=== PATIENT | male | born 1985 | race Caucasian/White ===

== ENCOUNTER 2019-11-30 13:03 | Emergency (ER) | payer OTHER ==
--- NOTE | 2019-11-30 15:03 | ED Physician Documentation ---
PD HPI SKIN - Stated complaint Stated Complaint: RASH - Chief complaint Chief Complaint: General - History obtained from History obtained from: Patient - History of Present Illness Timing - onset: How many days ago (few) Timing - duration: Days (few) Timing - details: Gradual onset, Still present, Waxing and waning Location: Bodywide Quality / character: Itchy, Raised. No: Vesicular Associated symptoms: No: Fever, Myalgias, Facial swelling, Dyspnea, N/V/D Contributing factors: Unknown (he is recently moved to [facility] and is in hotel currently, but using his own soap and shampoo.). No: Exposed to medication, Exposed to food Similar symptoms before: Has not had sx before Review of Systems Constitutional: denies: Fever Nose: denies: Rhinorrhea / runny nose, Congestion Throat: denies: Sore throat Respiratory: denies: Cough GI: denies: Abdominal Pain, Nausea, Vomiting, Diarrhea Skin: reports: Rash (hives intermittently difusely) PD PAST MEDICAL HISTORY - Past Medical History Past Medical History: No - Present Medications Home Medications: Ambulatory Orders Medication Instructions Recorded Confirmed Cetirizine [ZyrTEC] 10 mg PO BID #14 tablet 11/30/19 Famotidine 20 mg PO BID #14 tablet 11/30/19 dexAMETHasone [Decadron] 4 mg PO DAILY #7 tablet 11/30/19 - Allergies Allergies/Adverse Reactions: Allergies Allergy/AdvReac Type Severity Reaction Status Date / Time No Known Drug Allergies Allergy Verified 11/30/19 13:32 PD ED PE NORMAL - Vitals Vital signs reviewed: Yes - General General: Alert and oriented X 3, No acute distress, Well developed/nourished - HEENT HEENT: Moist mucous membranes, Pharynx benign - Neck Neck: Supple, no meningeal sign, No adenopathy - Cardiac Cardiac: RRR, No murmur - Respiratory Respiratory: Clear bilaterally - Derm Derm: Normal color, Warm and dry, Other (blotchy raised areas c/w mild hives. ) Results - Vitals Vitals: Vital Signs - 24 hr 11/30/19 11/30/19 13:32 15:44 Temperature 36.9 C 36.7 C Heart Rate 81 79 Respiratory 16 14 Rate Blood Pressure 163/77 H 136/87 H O2 Saturation 99 99 Oxygen O2 Source Room air PD MEDICAL DECISION MAKING - ED course Complexity details: considered differential (hives without obvious cause. ), d/w patient Departure - Departure Disposition: 01 Home, Self Care Clinical Impression: Acute urticaria Condition: Stable Record reviewed to determine appropriate education?: Yes Instructions: ED Allergic Reaction General Other Follow-Up: DAVID Suarez [Provider Group] Prescriptions: dexAMETHasone [Decadron] 4 mg PO DAILY #7 tablet Famotidine 20 mg PO BID #14 tablet Cetirizine [ZyrTEC] 10 mg PO BID #14 tablet Comments: At this point the cause of your allergic reaction is not clear. Use an tihistamines of famotidine and cetirizine (both H1 and H2 blockers) as well as the Decadron steroid for the next week. Continue Benadryl 25 to 50 mg every 6 hours if needed for itchiness. Recheck if not improving well over the next 2 to 3 days and resolved over the few days. Follow-up with your primary care if persistent or recurrent problems. Discharge Date/Time: 11/30/19 15:49
[2019-11-30] MEDS ORDERED: CHERRY SYRUP 10 ML UDC PO ONE (15:22)
[2019-11-30] MEDS ORDERED: diphenhydrAMINE 25 MG CAPSULE PO STA (15:22)
[2019-11-30] MEDS ORDERED: DEXAMETHASONE 10 MG/ML VIAL PO STA (15:22)
[2019-11-30] MEDS ORDERED: CETIRIZINE 10 MG TABLET PO STA (15:22)
[2019-11-30] MEDS ORDERED: FAMOTIDINE 20 MG TABLET PO STA (15:22)
[2019-11-30 15:47] VITALS: BP 136/87
== END 2019-11-30 15:49 | disposition home or self-care (01) ==
LOC: ED 13:03
DX: L50.9 Urticaria, unspecified (principal)
CPT/HCPCS: 99283; 99284; A9270

== ENCOUNTER 2021-04-09 21:47 | Emergency (ER) | payer OTHER ==
[2021-04-09 22:20] VITALS: BP 179/96
--- NOTE | 2021-04-09 22:20 | XRAY Report ---
PROCEDURE: Ankle 3 View LT INDICATIONS: pain/injury TECHNIQUE: 3 views of the ankle were acquired. COMPARISON: None FINDINGS: Bones: No fractures or dislocations. Ankle mortise is normally aligned. No suspicious bony lesions . Soft tissues: Mild lateral ankle soft tissue swelling is seen. No tibiotalar joint effusion. Achill es tendon appears normal. IMPRESSION: No gross acute ankle fracture or dislocation. Mild lateral ankle soft tissue swelling. Reviewed by: Tai Blake MD on 04/09/2021 10:19 PM PST Approved by: Tai Blake MD on 04/09/2021 10:19 PM PST Station ID: [id number]
[2021-04-10] MEDS ORDERED: predniSONE 20 MG TABLET PO STA (00:10)
--- NOTE | 2021-04-10 00:13 | ED Physician Documentation ---
History of Present Illness - Stated complaint Stated Complaint: Evette BLAND PX - Chief complaint Chief Complaint: Ext Problem - History obtained from History obtained from: Patient - Additonal information Additional information: Emergency department chief complaint of left ankle pain. 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 He states that on and off over the last year, he has noticed that he occasionally will suddenly develop a pop and a pain in his ankle anterolaterally. He states at that time, it hurts very much to bear weight, and that extremes of movement at the ankle are painful as well. He states that sometimes, it resolves within an hour and he can go back to regular walking and athletics pain-free. He denies any history of any injury to the ankle whatsoever. No connective tissue disorder. No swelling or redness. He does note that his father did have gout previously. Patient is otherwise healthy. No fevers or chills. No other complaints at this time. Review of Systems Ten Systems: 10 systems reviewed and negative Constitutional: reports: Reviewed and negative Eyes: reports: Reviewed and negative Ears: reports: Reviewed and negative Nose: reports: Reviewed and negative Throat: reports: Reviewed and negative Cardiac: reports: Reviewed and negative Respiratory: reports: Reviewed and negative GI: reports: Reviewed and negative : reports: Reviewed and negative Skin: reports: Reviewed and negative Musculoskeletal: reports: Joint pain, Pain with weight bearing. denies: Joint swelling Neurologic: reports: Reviewed and negative Psychiatric: reports: Reviewed and negative Endocrine: reports: Reviewed and negative Immunocompromised: reports: Reviewed and negative PD PAST MEDICAL HISTORY - Past Medical History Past Medical History: Yes Cardiovascular: Hypertension Respiratory: None Neuro: None Endocrine/Autoimmune: None GI: None : None HEENT: None Psych: None Musculoskeletal: None Derm: None - Past Surgical History Past Surgical History: Yes - Present Medications Home Medications: Ambulatory Orders Medication Instructions Recorded Confirmed Cetirizine [ZyrTEC] 10 mg PO BID #14 tablet 11/30/19 Famotidine 20 mg PO BID #14 tablet 11/30/19 dexAMETHasone [Decadron] 4 mg PO DAILY #7 tablet 11/30/19 predniSONE [Deltasone] 60 mg PO DAILY 5 Days #15 tablet 04/10/21 - Allergies Allergies/Adverse Reactions: Allergies Allergy/AdvReac Type Severity Reaction Status Date / Time No Known Drug Allergies Allergy Verified 04/09/21 22:20 - Social History Does the pt smoke?: No Smoking Status: Never smoker Does the pt drink ETOH?: Yes Does the pt have substance abuse?: No - Immunizations Immunizations are current?: Yes - POLST Patient has POLST: No PD ED PE NORMAL - Vitals Vital signs reviewed: Yes - General General: Alert and oriented X 3, No acute distress, Well developed/nourished - HEENT HEENT: Atraumatic, PERRL, EOMI, Moist mucous membranes - Cardiac Cardiac: Strong equal pulses - Respiratory Respiratory: No respiratory distress - Derm Derm: Normal color, Warm and dry, No rash, Other (No erythema or edema of the left lower extremity.) - Extremities Extremities: No deformity, Normal ROM s pain, No edema, No calf tenderness / cord, Other (Tenderness palpation over anterior talofibular ligament distribution. No popping or cracking with passive or active range of motion.) - Neuro Neuro: Alert and oriented X 3 - Psych Psych: Normal mood, Normal affect Results - Vitals Vitals: Vital Signs - 24 hr 04/09/21 22:16 Temperature 36.6 C Heart Rate 81 Respiratory 16 Rate Blood Pressure 179/96 H O2 Saturation 98 Oxygen O2 Source Room air - Rads (name of study) L Ankle x-ray series Radiology: Final report received, EMP read indepedently, See rad report PD MEDICAL DECISION MAKING - ED course Complexity details: reviewed results, re-evaluated patient, considered differential, d/w patient ED course: I am not clear exactly what is causing the popping and pain in the patient's ankle, but he does not have any acute condition. We have discussed symptomatic management at home, including the need to rest the ankle, and the usual indications for return. Departure - Departure Disposition: 01 Home, Self Care Clinical Impression: Ankle pain, left Qualifiers: Chronicity: acute Qualified Code(s): M25.572 - Pain in left ankle and joints of left foot Condition: Stable Instructions: Impingement Syndrome Prescriptions: predniSONE [Deltasone] 60 mg PO DAILY 5 Days #15 tablet Comments: Your ankle x-ray series is negative. It is not clear exactly what is causing the episodes of popping and pain that you are having, though there may be tracking in the shoe with one of the talofibular ligaments. MRI is sometimes helpful in sorting these sorts of things out. Please follow-up with your primary care physician to discuss referral to orthopedics and the possibility of MRI. You may continue the meloxicam and also, take the prednisone that has been prescribed to help with the inflammation. Discharge Date/Time: 04/10/21 00:20
== END 2021-04-10 00:20 | disposition home or self-care (01) ==
LOC: ED 21:47
DX: M25.572 Pain in left ankle and joints of left foot (principal); I10 Essential (primary) hypertension
CPT/HCPCS: 73610; 99283; J7512

== ENCOUNTER 2021-12-10 09:22 | Outpatient (CLI) | payer OTHER ==
--- NOTE | 2021-12-10 13:02 | MRI Report ---
PROCEDURE: Elbow RT W/O INDICATIONS: RIGHT ELBOW INJURY, LEFT ANKLE INJURY TECHNIQUE: Noncontrast coronal proton density fast spin echo and T2 fast spin echo with fat saturation, axial an d sagittal T1 spin echo and T2 fast spin echo with fat saturation through the elbow. COMPARISON: None. FINDINGS: Image quality: Excellent. Lateral structures: There is thickening of the proximal common extensor tendon with superimposed flu id signal intensity, consistent with tendinosis and partial tearing. Soft tissue edema is seen extend ing into the proximal extensor musculature, consistent with a grade 1 strain. The radial collateral l igament and the lateral ulnar collateral ligament are grossly intact. Medial structures: The ulnar collateral ligament appears intact. The overlying common flexor tendon demonstrates mild tendinosis. The ulnar nerve appears mildly thickened with increased signal intens ity at the level of the cubital tunnel. Anterior structures: Mild tendinosis of the distal biceps tendon is seen at the distal insertion. Th e brachialis tendon is intact. No bicipitoradial bursal fluid. The median and radial neurovascular b undles appear normal; no focal muscle atrophy to suggest nerve impingement. Posterior structures: The triceps tendon appears intact. No olecranon bursal fluid. Bone and cartilage: No bone marrow contusions or fractures. No osteochondral injuries. IMPRESSION: 1.Moderate partial tearing of the common extensor tendon at the origin superimposed on moderate tendi nosis. Superimposed low-grade strain of the proximal extensor musculature. 2.Mild chronic tendinosis of the common flexor tendon at the origin. 3.Mild thickening and increased signal intensity within the ulnar nerve can be seen in the setting of ulnar neuritis. Recommend correlation with neurologic exam findings. 4.Mild distal biceps tendinosis. Reviewed by: Marlon Solorio MD on 12/10/2021 1:01 PM PDT Approved by: Marlon Solorio MD on 12/10/2021 1:01 PM PDT Station ID: [id number]
--- NOTE | 2021-12-10 13:09 | MRI Report ---
PROCEDURE: Ankle LT W/O INDICATIONS: RIGHT ELBOW INJURY, LEFT ANKLE INJURY TECHNIQUE: Noncontrast Magnetic Resonance Imaging (MRI) of the ankle/hindfoot was performed utilizing the follow ing sequences: sagittal T1 spin echo, sagittal STIR, axial PD fast spin echo, axial T2 fast spin echo with fat saturation, coronal T2 spin echo with fat saturation, and coronal PD fast spin echo with fa t saturation. COMPARISON: None. FINDINGS: Image quality: Excellent. Bones and joints: No acute trabecular bone injury or fracture. No hindfoot coalition. The ankle mortise is maintained. No osteochondral defect is seen at the talar dome. Mild degenerative spurring of the dorsal talonavi cular and navicular cuneiform articulations. Medial structures: Mildly increased signal within the deep deltoid ligament fibers is compatible with a low-grade sprain . There is also thickening of the tibiospring ligament. The spring ligament components are grossly in tact. Mild posterior tibialis tenosynovitis. The flexor digitorum longus and flexor hallucis longus t endons are intact and within normal limits. The posterior tibial neurovascular bundle appears normal within the tarsal tunnel, without extrinsic mass effect. Lateral structures: The anterior and posterior distal tibiofibular ligaments are intact. Mild thickening of the anterior talofibular ligament. The calcaneofibular ligament and posterior talofibular ligament is intact. Ther e is moderate peroneus brevis tendinosis. The peroneus longus tendon inserts mild tendinosis. The sin us tarsi demonstrates normal fatty signal. Anterior structures: The tibialis anterior, extensor hallucis longus, and extensor digitorum longus tendons appear intact. Posterior and plantar structures: The Achilles tendon is intact. The medial and lateral bands of the plantar fascia are within normal l imits. No disproportionate atrophy of the abductor digiti minimi muscle. IMPRESSION: 1.Chronic low-grade sprains of the deep deltoid ligament and tibiospring ligament. 2.Mild posterior tibialis tenosynovitis. 3.Chronic low-grade sprain of the anterior talofibular ligament. 4.Moderate peroneus brevis tendinosis and mild peroneus longus tendinosis. 5.Mild degenerative spurring at the dorsal talonavicular and naviculocuneiform articulations. Reviewed by: Marlon Solorio MD on 12/10/2021 1:08 PM PDT Approved by: Marlon Solorio MD on 12/10/2021 1:08 PM PDT Station ID: [id number]
== END 2021-12-10 09:23 | disposition home or self-care (01) ==
LOC: DI 09:22
DX: S56.511A Strain of other extensor muscle, fascia and tendon at forearm level, right arm, initial encounter (principal); M67.823 Other specified disorders of tendon, right elbow; S93.422A Sprain of deltoid ligament of left ankle, initial encounter; S93.492A Sprain of other ligament of left ankle, initial encounter; M67.874 Other specified disorders of tendon, left ankle and foot; M77.52 Other enthesopathy of left foot and ankle